=== PATIENT | female | born 1955 | race Caucasian/White ===

== ENCOUNTER 2016-11-10 21:10 | Emergency (ER) | payer OTHER ==
[2016-11-10 23:42] LABS: HEMOGLOBIN 11.6 gm/dl (12.3-15.3); RED BLOOD COUNT 3.95 M/UL (4.00-5.10); WHITE BLOOD COUNT 6.9 K/UL (4.5-11.0)
[2016-11-10 23:54] LABS: BUN/CREATININE RATIO 13 (0-10)
== END 2016-11-11 00:35 | disposition home or self-care (01) ==
LOC: ER1 21:10
PROVIDERS: Emergency Medicine
DX: M54.6 Pain in thoracic spine (principal); M54.5 Low back pain; Y92.009 Unspecified place in unspecified non-institutional (private) residence as the place of occurrence of the external cause
CPT/HCPCS: 36415; 72125; 72128; 72131; 80048; 81001; 82550; 83605; 85025; 85610; 85730; 86140; 96374; 96375; 99284; J1885; J2930; J7030